=== PATIENT | female | born 1945 | race Caucasian/White ===

== ENCOUNTER 2024-03-30 16:41 | Inpatient (IN) | payer MEDICARE ==
[~2024-03-30] VITALS: Ht 167.6 cm; Wt 96.5 kg
[2024-03-30 17:49] LABS: BASO # 0.1 10^3/uL (0.0-0.2); BASO % 0.3 % (0.0-1.0); EOS # 0.2 10^3/uL (0.0-0.5); HEMATOCRIT 41.2 % (36.0-47.0); HEMOGLOBIN 13.4 g/dl (12.0-15.5); LYMPH # 1.5 10^3/uL (1.5-5.0); LYMPH % 10.5 % (24.0-44.0); MEAN CORPUSCULAR HEMOGLOBIN 28.8 pg (27.0-33.0); MEAN CORPUSCULAR HGB CONC 32.5 g/dl (32.0-36.5); MEAN CORPUSCULAR VOLUME 88.4 fl (80.0-96.0); MONO # 1.1 10^3/uL (0.0-0.8); MONO % 7.7 % (2.0-8.0); NEUTROPHILS # 11.6 10^3/uL (1.5-8.5); NEUTROPHILS % 80.1 % (36.0-66.0); PLATELET COUNT, AUTOMATED 185 10^3/uL (150-450); RED BLOOD COUNT 4.66 10^6/uL (4.00-5.40); WHITE BLOOD COUNT 14.5 10^3/uL (4.0-10.0)
[2024-03-30 18:00] LABS: INR 1.14; PARTIAL THROMBOPLASTIN TIME 24.9 SECONDS (24.8-34.2); PROTHROMBIN TIME 14.3 SECONDS (12.5-14.5)
[2024-03-30 18:14] LABS: CK-MB VALUE MASS 8.4 NG/ML (<3.6)
[2024-03-30 18:17] LABS: ALBUMIN 3.4 G/DL (3.2-5.2); BILIRUBIN,DIRECT 0.3 MG/DL (<0.4); BILIRUBIN,TOTAL 0.8 MG/DL (0.3-1.2); CREATININE FOR GFR 1.83 MG/DL (0.55-1.30); GLOMERULAR FILTRATION RATE 28.5 (>39); POTASSIUM SERUM 5.7 MMOL/L (3.5-5.1); TOTAL PROTEIN 6.9 G/DL (5.7-8.2)
[2024-03-30 18:19] LABS: FREE T4 1.22 NG/DL (0.89-1.76); THYROID STIMULATING HORMONE 0.234 uIU/ML (0.55-4.78)
[2024-03-30 18:21] LABS: MB/CK RELATIVE INDEX 0.98 (< OR =4)
[2024-03-30] MEDS: NS 500 ML IV ONE (18:34)
[2024-03-30] MEDS: HumuLIN R (REGULAR) INSULIN (NovoLIN R) **100U/ML** PER UNIT IV ONE (19:41)
[2024-03-30] MEDS: CALCIUM GLUCONATE 1,000 MG in D5W MINI-BAG PLUS 100 ML IV ONE (19:42)
[2024-03-30] MEDS: DEXTROSE 50% 50ML SYRINGE IV STA (19:44)
[2024-03-30 20:09] LABS: CK-MB VALUE MASS 8.1 NG/ML (<3.6)
[2024-03-30 20:10] LABS: MB/CK RELATIVE INDEX 0.93 (< OR =4)
[2024-03-30] MEDS ORDERED: FURO20TA2 PO (20:56)
[2024-03-30] MEDS ORDERED: ASPI-615 PO (20:56)
[2024-03-30] MEDS ORDERED: FAMO10TA50 PO (20:56)
[2024-03-30] MEDS ORDERED: BUDE10.2 INH (20:56)
[2024-03-30] MEDS ORDERED: LANS30CA93 PO (21:00)
[2024-03-30] MEDS ORDERED: GABA-1490 PO (21:00)
[2024-03-30] MEDS ORDERED: LEVO75TA4 PO (21:00)
[2024-03-30] MEDS ORDERED: LEVO50TA5 PO (21:00)
[2024-03-30] MEDS ORDERED: PRAM1TAB7 PO (21:11)
[2024-03-30] MEDS ORDERED: METO1TAB7 PO (21:11)
[2024-03-30] MEDS ORDERED: TRAZ-257 PO (21:11)
[2024-03-30] MEDS ORDERED: LISI5TAB11 PO (21:11)
[2024-03-30] MEDS ORDERED: SALA1TAB PO (21:11)
[2024-03-30] MEDS ORDERED: ROSU10TA61 PO (21:11)
[2024-03-30] MEDS ORDERED: OXYC20TA2 PO ×2 (21:11→21:20)
[2024-03-30] MEDS ORDERED: SERT50TA29 PO (21:11)
[2024-03-30] MEDS ORDERED: MAGN64TASA PO (21:11)
[2024-03-30] MEDS ORDERED: MELATAB3 PO (21:11)
[2024-03-30] MEDS ORDERED: SENN-23 PO (21:11)
[2024-03-30] MEDS ORDERED: TIZA10TA PO (21:11)
[2024-03-30] MEDS ORDERED: MIRA3350 PO (21:20)
[2024-03-30] MEDS ORDERED: PHEN26CR TOP (21:20)
[2024-03-30] MEDS ORDERED: REFR0.5D8 OU (21:20)
[2024-03-30] MEDS ORDERED: TUMS500C PO (21:20)
[2024-03-30] MEDS ORDERED: NYST1POW9 TOP (21:20)
[2024-03-30] MEDS ORDERED: SFHHYD1CR TOP (21:20)
[2024-03-30] MEDS ORDERED: ONDA-84 PO (21:20)
[2024-03-30] MEDS ORDERED: ALBU8.5H INH (21:20)
[2024-03-30] MEDS ORDERED: IPRA0.00 INH (21:20)
[2024-03-30] MEDS ORDERED: [UNRECOGNIZED DRUG - CODE] MM (21:20)
[2024-03-30] MEDS ORDERED: HOME MED LIST COMPLETE! XX SCH (21:25)
[2024-03-30] MEDS ORDERED: ACETAMINOPHEN TAB 650MG DOSE (2X325MG) PO PRN (23:05)
[2024-03-30] MEDS ORDERED: IPRATROPIUM 0.5MG/ALBUTEROL 2.5MG INH SOL UD 3ML (DUONEB) INH PRN (23:05)
[2024-03-30] MEDS ORDERED: ONDANSETRON 4MG TAB PO PRN (23:05)
[2024-03-30] MEDS ORDERED: MIRALAX *UNIT DOSE* 17GM PACKET PO PRN (23:05)
[2024-03-30] MEDS ORDERED: DIBUCAINE 1% OINTMENT 30GM TOP PRN (23:05)
[2024-03-30] MEDS ORDERED: NYSTATIN 100,000 UNITS/GM TOPICAL PWD 15GM TOP PRN (23:05)
[2024-03-30] MEDS ORDERED: ARTIFICIAL TEARS DROPS 15ML BTL (VISINE DRY RELIEF) OU PRN (23:05)
[2024-03-30] MEDS ORDERED: ALBUTEROL 90 MCG/ACT 8GM HFA INHALER INH PRN (23:05)
[2024-03-30] MEDS: AZITHROMYCIN 250MG TABLET PO ONE (23:41)
[2024-03-30] MEDS: cefTRIAXone SOD 1 GM in D5W MINI-BAG PLUS 50 ML IV ONE (23:42)
[2024-03-31] MEDS ORDERED: NALOXONE INJ 0.4MG/1ML VIAL IV PRN ×2 (00:05→12:15)
[2024-03-31] MEDS ORDERED: PILL CUTTER 1 EACH XX PRN (00:10)
[2024-03-31 00:44] LABS: BLOOD UREA NITROGEN 49 MG/DL (9-23); CALCIUM LEVEL 8.9 MG/DL (8.3-10.6); CARBON DIOXIDE LEVEL 34 MMOL/L (20-31); CHLORIDE LEVEL 106 MMOL/L (98-107); CREATININE FOR GFR 1.74 MG/DL (0.55-1.30); GLOMERULAR FILTRATION RATE 30.2 (>39); GLUCOSE, FASTING 99 MG/DL (74-106); MAGNESIUM LEVEL 2.2 MG/DL (1.8-2.4); POTASSIUM SERUM 5.3 MMOL/L (3.5-5.1); SODIUM LEVEL 143 MMOL/L (136-145)
[2024-03-31 00:51] LABS: PROCALCITONIN <0.04 ng/ml
[2024-03-31] MEDS: LEVOTHYROXINE 75MCG TABLET (0.075MG) PO SCH (07:09)
[2024-03-31 07:31] LABS: HEMATOCRIT 39.5 % (36.0-47.0); HEMOGLOBIN 12.9 g/dl (12.0-15.5); MEAN CORPUSCULAR HEMOGLOBIN 28.6 pg (27.0-33.0); MEAN CORPUSCULAR HGB CONC 32.7 g/dl (32.0-36.5); MEAN CORPUSCULAR VOLUME 87.6 fl (80.0-96.0); PLATELET COUNT, AUTOMATED 174 10^3/uL (150-450); RED BLOOD COUNT 4.51 10^6/uL (4.00-5.40); WHITE BLOOD COUNT 11.4 10^3/uL (4.0-10.0)
[2024-03-31 08:17] LABS: ALBUMIN 3.2 G/DL (3.2-5.2); BILIRUBIN,TOTAL 1.1 MG/DL (0.3-1.2); CALCIUM LEVEL 8.8 MG/DL (8.3-10.6); CREATININE FOR GFR 1.5 MG/DL (0.55-1.30); GLOMERULAR FILTRATION RATE 35.8 (>39); MAGNESIUM LEVEL 2.1 MG/DL (1.8-2.4); POTASSIUM SERUM 4.9 MMOL/L (3.5-5.1); TOTAL PROTEIN 6.4 G/DL (5.7-8.2)
[2024-03-31] MEDS: SYMBICORT 160/4.5MCG INHALER 6GM INH SCH (08:19)
[2024-03-31] MEDS ORDERED: PILOCARPINE 5 MG PO SCH (09:00)
[2024-03-31] MEDS: lisinopriL 5 MG TAB PO SCH (09:00)
[2024-03-31] MEDS ORDERED: DOCUSATE SODIUM 100MG CAPSULE PO SCH (09:00)
[2024-03-31] MEDS: PRAMIPEXOLE 1 MG TAB PO SCH (10:01)
[2024-03-31] MEDS: SENOKOT S TAB PO SCH (10:02)
[2024-03-31] MEDS: oxyCODONE 5MG TAB PO SCH (10:03)
[2024-03-31] MEDS: SERTRALINE HCL 50 MG TAB PO SCH (10:04)
[2024-03-31] MEDS: PANTOPRAZOLE 40MG TAB (PROTONIX) PO SCH (10:04)
[2024-03-31] MEDS: FAMOTIDINE 20 MG TAB PO SCH (10:04)
[2024-03-31] MEDS: MAGNESIUM GLUCONATE 500 MG TAB PO SCH (10:05)
[2024-03-31] MEDS: GABAPENTIN 300 MG CAP PO SCH (10:05)
[2024-03-31] MEDS: FUROSEMIDE 20 MG TAB PO SCH (10:05)
[2024-03-31] MEDS: ASPIRIN 81MG ENTERIC TABLET PO SCH (10:05)
[2024-03-31] MEDS: HEPARIN SOD (PORCINE) 5000UNITS/ML 1ML VIAL/SYRINGE SC SCH (10:06)
[2024-03-31] MEDS: ACETAMINOPHEN 500 MG TAB PO SCH (14:48)
[2024-03-31] MEDS: oxyCODONE 5MG TAB PO ONE (14:48)
[2024-03-31 15:04] VITALS: BP 114/72; TEMP 97.5; O2SAT 94
[2024-03-31 16:40] VITALS: O2SAT 94
[2024-03-31 20:10] VITALS: BP 138/80; TEMP 97; O2SAT 96
[2024-03-31 21:00] VITALS: O2SAT 94
[2024-03-31] MEDS: tiZANidine 4 MG TAB PO SCH (21:16)
[2024-03-31] MEDS: traZODone 100 MG TAB PO SCH (21:16)
[2024-03-31] MEDS: ROSUVASTATIN 10 MG TAB (CRESTOR) PO SCH (21:17)
[2024-03-31] MEDS: METOPROLOL SUCC (TopROL XL) 50MG **XL** TAB PO SCH (21:17)
[2024-03-31] MEDS: cefTRIAXone SOD 1 GM in D5W MINI-BAG PLUS 50 ML IV SCH (22:49)
[2024-04-01 04:00] VITALS: BP 134/76; TEMP 97.5; O2SAT 92
[2024-04-01] MEDS: LEVOTHYROXINE 50MCG TABLET (0.05MG) PO SCH (05:48)
[2024-04-01 08:10] VITALS: BP 122/68; TEMP 97.3; O2SAT 97
[2024-04-01] MEDS: AZITHROMYCIN 250MG TABLET PO SCH (10:21)
[2024-04-01 12:41] VITALS: BP 132/84; TEMP 97.5; O2SAT 98
[2024-04-01] MEDS: oxyCODONE 5MG TAB PO PRN (14:28)
[2024-04-01] MEDS ORDERED: oxyCODONE 5MG TAB PO PRN (16:40)
[2024-04-01] MEDS: ACETAMINOPHEN 500 MG TAB PO SCH (17:29)
[2024-04-01 17:39] LABS: CALCIUM LEVEL 9.5 MG/DL (8.3-10.6); CREATININE FOR GFR 1.41 MG/DL (0.55-1.30); GLOMERULAR FILTRATION RATE 38.5 (>39); POTASSIUM SERUM 4.8 MMOL/L (3.5-5.1)
[2024-04-01 21:00] VITALS: O2SAT 95
[2024-04-01] MEDS: amLODIPine 5 MG TAB PO SCH (21:00)
[2024-04-01] MEDS: **hydrALAZINE** 10 MG TAB PO SCH (21:00)
[2024-04-01 22:00] VITALS: BP 111/64; TEMP 97.3; O2SAT 93
[2024-04-01] MEDS: CEFDINIR 300 MG CAP (OMNICEF) PO SCH (22:42)
[2024-04-02] VITALS (7 sets, daily range): BP systolic 105–153; BP diastolic 54–77; TEMP 97–97.9; O2SAT 92–94
[2024-04-02] MEDS ORDERED: PERMETHRIN 5% CREAM 60 GM TOP SCH
[2024-04-02 06:04] LABS: HEMATOCRIT 42.6 % (36.0-47.0); LYMPH # 0.7 10^3/uL (1.5-5.0); LYMPH % 8.9 % (24.0-44.0); MEAN CORPUSCULAR HEMOGLOBIN 28.5 pg (27.0-33.0); MEAN CORPUSCULAR HGB CONC 32.9 g/dl (32.0-36.5); MEAN CORPUSCULAR VOLUME 86.6 fl (80.0-96.0); MONO # 0.1 10^3/uL (0.0-0.8); MONO % 1.7 % (2.0-8.0); NEUTROPHILS % 89.1 % (36.0-66.0); PLATELET COUNT, AUTOMATED 205 10^3/uL (150-450); RED BLOOD COUNT 4.92 10^6/uL (4.00-5.40); WHITE BLOOD COUNT 7.8 10^3/uL (4.0-10.0)
[2024-04-02 06:34] LABS: CALCIUM LEVEL 9.1 MG/DL (8.3-10.6); CREATININE FOR GFR 1.54 MG/DL (0.55-1.30); GLOMERULAR FILTRATION RATE 34.8 (>39); POTASSIUM SERUM 4.8 MMOL/L (3.5-5.1)
[2024-04-02] MEDS: PERMETHRIN 5% CREAM 60 GM TOP ONE (17:58)
[2024-04-02] MEDS: RAMELTEON 8 MG TAB (ROZEREM) PO PRN (20:34)
[2024-04-03 03:52] VITALS: BP 130/58; TEMP 97.9; O2SAT 95
[2024-04-03 09:00] VITALS: O2SAT 94
[2024-04-03] MEDS ORDERED: OXYC-517 PO (11:37)
[2024-04-03] MEDS ORDERED: CEFD300CAP PO (11:37)
[2024-04-03] MEDS ORDERED: BACI1CAP PO (11:37)
[2024-04-03] MEDS ORDERED: ACET-683 PO (11:41)
[2024-04-03] MEDS ORDERED: METO1TAB87 PO (11:44)
[2024-04-03] MEDS ORDERED: LASI20TA3 PO (11:46)
[2024-04-03] MEDS ORDERED: GABA-282 PO (11:48)
[2024-04-03] MEDS ORDERED: DEXA2TA PO (11:52)
[2024-04-03 12:35] VITALS: BP 129/71; TEMP 97.7; O2SAT 94
== END 2024-04-03 13:21 | disposition home or self-care (01) | DRG 689 ==
LOC: M ED 16:41 → M ED INP 23:04 → M MSPAV 03-31 14:58
PROVIDERS: ADMIT Family Medicine; ATTEND General Practice
DX: N39.0 Urinary tract infection, site not specified (principal); J18.9 Pneumonia, unspecified organism; G92.8 Other toxic encephalopathy; S22.079A Unspecified fracture of T9-T10 vertebra, initial encounter for closed fracture; N17.9 Acute kidney failure, unspecified; Z66 Do not resuscitate; E87.5 Hyperkalemia; W19.XXXA Unspecified fall, initial encounter; Y92.009 Unspecified place in unspecified non-institutional (private) residence as the place of occurrence of the external cause; Y93.9 Activity, unspecified; I25.10 Atherosclerotic heart disease of native coronary artery without angina pectoris; I12.9 Hypertensive chronic kidney disease with stage 1 through stage 4 chronic kidney disease, or unspecified chronic kidney disease; E78.5 Hyperlipidemia, unspecified; E11.42 Type 2 diabetes mellitus with diabetic polyneuropathy; J44.9 Chronic obstructive pulmonary disease, unspecified; J45.909 Unspecified asthma, uncomplicated; K21.9 Gastro-esophageal reflux disease without esophagitis; E11.22 Type 2 diabetes mellitus with diabetic chronic kidney disease; N18.30 Chronic kidney disease, stage 3 unspecified; M19.90 Unspecified osteoarthritis, unspecified site; G25.81 Restless legs syndrome; M91.0 Juvenile osteochondrosis of pelvis; F32.A Depression, unspecified; E03.9 Hypothyroidism, unspecified; G89.4 Chronic pain syndrome; Z90.13 Acquired absence of bilateral breasts and nipples; Z98.49 Cataract extraction status, unspecified eye; Z85.3 Personal history of malignant neoplasm of breast; Z79.82 Long term (current) use of aspirin; Z79.899 Other long term (current) drug therapy; Z79.891 Long term (current) use of opiate analgesic; Z79.890 Hormone replacement therapy; Z88.2 Allergy status to sulfonamides; Z88.1 Allergy status to other antibiotic agents; Z88.8 Allergy status to other drugs, medicaments and biological substances

== ENCOUNTER 2024-10-15 22:15 | Emergency (ER) | payer MEDICARE, MEDICAID ==
[~2024-10-15] VITALS: Ht 165.1 cm; Wt 92.1 kg
[~2024-10-15 22:15] MED LIST: ACET-683 PO; ALBU8.5H INH; ASPI-615 PO; BACI1CAP PO; BUDE10.2 INH; CEFD300CAP PO; DEXA2TA PO; FAMO10TA50 PO; FURO20TA2 PO; GABA-1172 PO; GABA-1490 PO; IPRA0.00 INH; LANS30CA93 PO; LASI20TA3 PO; LEVO50TA5 PO; LEVO75TA4 PO; LISI5TAB11 PO; MAGN64TASA PO; MELATAB3 PO; METO1TAB7 PO; METO1TAB87 PO; MIRA3350 PO; NYST1POW3 TOP; ONDA-84 PO; OXYC-517 PO; OXYC20TA2 PO; PHEN26CR TOP; PRAM1TAB7 PO; REFR0.5D8 OU; ROSU10TA61 PO; SALA1TAB PO; SENN-23 PO; SERT50TA29 PO; SFHHYD1CR TOP; TIZA10TA PO; TRAZ-257 PO; TUMS500C PO; [UNRECOGNIZED DRUG - CODE] MM
[2024-10-15 23:05] LABS: BASO # 0.1 10^3/uL (0.0-0.2); BASO % 0.7 % (0.0-1.0); EOS # 0.2 10^3/uL (0.0-0.5); EOS % 2.4 % (0.0-3.0); HEMATOCRIT 38.1 % (36.0-47.0); HEMOGLOBIN 12.3 g/dl (12.0-15.5); LYMPH # 2.4 10^3/uL (1.5-5.0); MEAN CORPUSCULAR HEMOGLOBIN 28.9 pg (27.0-33.0); MEAN CORPUSCULAR HGB CONC 32.3 g/dl (32.0-36.5); MEAN CORPUSCULAR VOLUME 89.6 fl (80.0-96.0); MONO # 0.9 10^3/uL (0.0-0.8); MONO % 11.1 % (2.0-8.0); NEUTROPHILS # 4.1 10^3/uL (1.5-8.5); NEUTROPHILS % 53.5 % (36.0-66.0); PLATELET COUNT, AUTOMATED 170 10^3/uL (150-450); RED BLOOD COUNT 4.25 10^6/uL (4.00-5.40); WHITE BLOOD COUNT 7.6 10^3/uL (4.0-10.0)
[2024-10-15 23:27] LABS: ALBUMIN 3.3 G/DL (3.2-5.2); BILIRUBIN,TOTAL 0.5 MG/DL (0.3-1.2); CALCIUM LEVEL 8.7 MG/DL (8.3-10.6); CREATININE FOR GFR 1.2 MG/DL (0.55-1.30); GLOMERULAR FILTRATION RATE 46.6 (>39); POTASSIUM SERUM 3.4 MMOL/L (3.5-5.1); TOTAL PROTEIN 6.5 G/DL (5.7-8.2)
[2024-10-15 23:29] LABS: THYROID STIMULATING HORMONE 0.44 uIU/ML (0.55-4.78)
[2024-10-16 01:08] LABS: KETONE, URINE AUTO RFX NEGATIVE (NEGATIVE); LEUKOCYTE ESTERASE UR AUTO RFX NEGATIVE (NEGATIVE); MUCUS, URINE RFX SMALL (NEGATIVE); NITRITE, URINE AUTO RFX NEGATIVE (NEGATIVE); RBC, URINE AUTO RFX 2 /HPF (0-3); SQUAM EPITHELIAL CELL UR AURFX 3 /HPF (0-6); WBC, URINE AUTO RFX 1 /HPF (0-3)
[2024-10-16 02:49] VITALS: BP 119/75
[2024-10-16] MEDS: METOPROLOL 5 MG/5 ML VIAL IV STA (02:49)
[2024-10-16 08:15] VITALS: BP 126/67
[2024-10-16 08:16] VITALS: TEMP 97.5; O2SAT 99
== END 2024-10-16 08:41 | disposition home or self-care (01) ==
LOC: M ED 22:15
DX: F03.90 Unspecified dementia, unspecified severity, without behavioral disturbance, psychotic disturbance, mood disturbance, and anxiety (principal); R45.1 Restlessness and agitation; I44.4 Left anterior fascicular block; I45.81 Long QT syndrome; J44.9 Chronic obstructive pulmonary disease, unspecified; E78.5 Hyperlipidemia, unspecified; K21.9 Gastro-esophageal reflux disease without esophagitis; E03.9 Hypothyroidism, unspecified; N18.30 Chronic kidney disease, stage 3 unspecified; Z88.2 Allergy status to sulfonamides; Z88.8 Allergy status to other drugs, medicaments and biological substances; Z79.52 Long term (current) use of systemic steroids; Z79.83 Long term (current) use of bisphosphonates; Z79.82 Long term (current) use of aspirin; Z79.899 Other long term (current) drug therapy

== ENCOUNTER 2024-10-17 22:40 | Inpatient (IN) | payer MEDICARE, MEDICAID ==
[~2024-10-17] VITALS: Ht 162.6 cm; Wt 92.3 kg
[2024-10-18 00:35] LABS: HEMATOCRIT 39.6 % (36.0-47.0); HEMOGLOBIN 12.8 g/dl (12.0-15.5); MEAN CORPUSCULAR HEMOGLOBIN 29.3 pg (27.0-33.0); MEAN CORPUSCULAR HGB CONC 32.3 g/dl (32.0-36.5); MEAN CORPUSCULAR VOLUME 90.6 fl (80.0-96.0); PLATELET COUNT, AUTOMATED 176 10^3/uL (150-450); RED BLOOD COUNT 4.37 10^6/uL (4.00-5.40); WHITE BLOOD COUNT 8.6 10^3/uL (4.0-10.0)
[2024-10-18 00:46] LABS: ETHYL ALCOHOL (ETHANOL) < 0.003 % (0.000-0.010)
[2024-10-18 00:48] LABS: ALBUMIN 3.3 G/DL (3.2-5.2); ALKALINE PHOSPHATASE 59 U/L (35-104); ALT/SGPT 11 U/L (7.0-40); AST/SGOT 17 U/L (<34); BILIRUBIN,DIRECT < 0.1 MG/DL (<0.4); BILIRUBIN,TOTAL 0.3 MG/DL (0.3-1.2); BLOOD UREA NITROGEN 24 MG/DL (9-23); CALCIUM LEVEL 9.2 MG/DL (8.3-10.6); CARBON DIOXIDE LEVEL 28 MMOL/L (20-31); CHLORIDE LEVEL 105 MMOL/L (98-107); CREATININE FOR GFR 1.29 MG/DL (0.55-1.30); GLOMERULAR FILTRATION RATE 42.8 (>39); GLUCOSE, FASTING 118 MG/DL (74-106); SALICYLATE LEVEL < 3.0 MG/DL (<30); SODIUM LEVEL 144 MMOL/L (136-145); TOTAL PROTEIN 6.6 G/DL (5.7-8.2)
[2024-10-18 02:41] LABS: KETONE, URINE AUTO RFX TRACE mg/dL (NEGATIVE); LEUKOCYTE ESTERASE UR AUTO RFX 3+ (NEGATIVE); MUCUS, URINE RFX SMALL (NEGATIVE); NITRITE, URINE AUTO RFX NEGATIVE (NEGATIVE); RBC, URINE AUTO RFX 6 /HPF (0-3); SQUAM EPITHELIAL CELL UR AURFX 5 /HPF (0-6); WBC, URINE AUTO RFX 89 /HPF (0-3)
[2024-10-18 03:00] LABS: AMPHETAMINES LEVEL URINE NEGATIVE (NEGATIVE); BARBITURATES URINE NEGATIVE (NEGATIVE); CANNABINOIDS URINE NEGATIVE (NEGATIVE); COCAINE METABOLITE URINE NEGATIVE (NEGATIVE); METHADONE URINE NEGATIVE (NEGATIVE); PHENCYCLIDINE URINE NEGATIVE (NEGATIVE)
[2024-10-18 03:01] LABS: BENZODIAZEPINES URINE POSITIVE (NEGATIVE); OPIATES URINE POSITIVE (NEGATIVE)
[2024-10-18] MEDS: cefTRIAXone SOD 2 GM in DEXTROSE 5% (D5W) ADV/MINI-BAG 50 ML IV ONE (04:23)
[2024-10-18] MEDS ORDERED: GLUCAGON INJ 1MG VIAL SC PRN (04:25)
[2024-10-18] MEDS ORDERED: DEXTROSE 50% 50ML SYRINGE IV PRN (04:25)
[2024-10-18] MEDS ORDERED: MOM 30ML SUSPENSION UDC PO PRN (04:25)
[2024-10-18] MEDS ORDERED: GLUCOSE 4 GM CHEW PO PRN (04:25)
[2024-10-18] MEDS ORDERED: MED REC CURRENTLY UNOBTAINABLE XX SCH (05:15)
[2024-10-18] MEDS: NS (Normal Saline) 0.9% 1,000 ML IV SCH (05:43)
[2024-10-18 06:05] LABS: HEMATOCRIT 37.2 % (36.0-47.0); MEAN CORPUSCULAR HEMOGLOBIN 29.2 pg (27.0-33.0); MEAN CORPUSCULAR HGB CONC 32.3 g/dl (32.0-36.5); MEAN CORPUSCULAR VOLUME 90.5 fl (80.0-96.0); PLATELET COUNT, AUTOMATED 161 10^3/uL (150-450); RED BLOOD COUNT 4.11 10^6/uL (4.00-5.40); WHITE BLOOD COUNT 7.8 10^3/uL (4.0-10.0)
[2024-10-18 06:36] LABS: BILIRUBIN,TOTAL 0.2 MG/DL (0.3-1.2); CREATININE FOR GFR 1.17 MG/DL (0.55-1.30); GLOMERULAR FILTRATION RATE 48.1 (>39); TOTAL PROTEIN 6.2 G/DL (5.7-8.2)
[2024-10-18] MEDS: INSULIN LISPRO (NovoLOG) PER UNIT SC SCH ×2 (07:30→20:07)
[2024-10-18] MEDS: DOCUSATE SODIUM 100MG CAPSULE PO SCH (09:00)
[2024-10-18] MEDS: HEPARIN SOD (PORCINE) 5000UNITS/ML 1ML VIAL/SYRINGE SC SCH (09:00)
[2024-10-18] MEDS ORDERED: METO1TAB87 PO (12:14)
[2024-10-18] MEDS ORDERED: OXYC-1 PO (12:14)
[2024-10-18] MEDS ORDERED: CEFD1CAP9 PO (12:14)
[2024-10-18] MEDS ORDERED: ACET500T15 PO (12:14)
[2024-10-18] MEDS ORDERED: NITR50CA51 PO (12:17)
[2024-10-18] MEDS ORDERED: VITA-183 PO (12:24)
[2024-10-18] MEDS ORDERED: LOPE2TAB12 PO (12:24)
[2024-10-18] MEDS ORDERED: BUME1TAB3 PO (12:24)
[2024-10-18] MEDS ORDERED: ALEN70TA82 PO (12:24)
[2024-10-18] MEDS ORDERED: HOME MED LIST COMPLETE! XX SCH (12:30)
[2024-10-18 14:25] VITALS: BP 150/58; TEMP 97.7
[2024-10-18 16:00] VITALS: BP 155/91; TEMP 97.9; O2SAT 95
[2024-10-18] MEDS ORDERED: POLYVINYL ALCOHOL OPHTH SOLN 15ML (LIQUITEARS) OU PRN (17:50)
[2024-10-18] MEDS ORDERED: NYSTATIN 100,000 UNITS/GM TOPICAL PWD 15GM TOP PRN (17:50)
[2024-10-18] MEDS ORDERED: MIRALAX *UNIT DOSE* 17GM PACKET PO PRN (17:50)
[2024-10-18] MEDS ORDERED: LOPERAMIDE 2 MG CAPLET PO PRN (17:50)
[2024-10-18] MEDS ORDERED: ALBUTEROL 90 MCG/ACT 8GM HFA INHALER INH PRN (17:50)
[2024-10-18] MEDS: ASPIRIN 81MG ENTERIC TABLET PO SCH (18:38)
[2024-10-18] MEDS: SERTRALINE HCL 50 MG TAB PO SCH (18:43)
[2024-10-18] MEDS: OMEPRAZOLE 20MG CAP PO SCH (18:44)
[2024-10-18] MEDS ORDERED: PILL CUTTER 1 EACH XX PRN (18:45)
[2024-10-18 20:00] VITALS: BP 120/73; TEMP 98.2; O2SAT 94
[2024-10-18] MEDS: SYMBICORT 160/4.5MCG INHALER 6GM INH SCH (20:00)
[2024-10-18] MEDS: ROSUVASTATIN 10 MG TAB (CRESTOR) PO SCH (20:20)
[2024-10-18] MEDS: ACETAMINOPHEN 500 MG TAB PO SCH (20:21)
[2024-10-18] MEDS: PRAMIPEXOLE 1 MG TAB PO SCH (20:21)
[2024-10-18] MEDS: METOPROLOL TART 25 MG TABLET PO SCH (20:21)
[2024-10-18] MEDS: FAMOTIDINE 20 MG TAB PO SCH (20:21)
[2024-10-19 00:07] VITALS: BP 123/59; TEMP 97.5; O2SAT 96
[2024-10-19] MEDS: cefTRIAXone SOD 1 GM in DEXTROSE 5% (D5W) ADV/MINI-BAG 50 ML IV SCH (04:30)
[2024-10-19 04:31] VITALS: BP 126/63; TEMP 97.3; O2SAT 94
[2024-10-19] MEDS: LEVOTHYROXINE 50MCG TABLET (0.05MG) PO SCH (05:03)
[2024-10-19 07:00] LABS: HEMATOCRIT 39.5 % (36.0-47.0); HEMOGLOBIN 12.7 g/dl (12.0-15.5); MEAN CORPUSCULAR HEMOGLOBIN 28.5 pg (27.0-33.0); MEAN CORPUSCULAR HGB CONC 32.2 g/dl (32.0-36.5); MEAN CORPUSCULAR VOLUME 88.8 fl (80.0-96.0); PLATELET COUNT, AUTOMATED 163 10^3/uL (150-450); RED BLOOD COUNT 4.45 10^6/uL (4.00-5.40); WHITE BLOOD COUNT 6.9 10^3/uL (4.0-10.0)
[2024-10-19 07:29] LABS: ALKALINE PHOSPHATASE 44 U/L (35-104); ALT/SGPT 11 U/L (7.0-40); AST/SGOT 15 U/L (<34); BILIRUBIN,TOTAL 0.6 MG/DL (0.3-1.2); BLOOD UREA NITROGEN 16 MG/DL (9-23); CALCIUM LEVEL 8.8 MG/DL (8.3-10.6); CARBON DIOXIDE LEVEL 26 MMOL/L (20-31); CHLORIDE LEVEL 109 MMOL/L (98-107); CREATININE FOR GFR 0.85 MG/DL (0.55-1.30); GLOMERULAR FILTRATION RATE > 60.0 (>39); GLUCOSE, FASTING 90 MG/DL (74-106); POTASSIUM SERUM 4.3 MMOL/L (3.5-5.1); SODIUM LEVEL 143 MMOL/L (136-145); TOTAL PROTEIN 6.3 G/DL (5.7-8.2)
[2024-10-19 08:00] VITALS: BP 140/70; TEMP 97.7; O2SAT 95
[2024-10-19] MEDS: FUROSEMIDE 20 MG TAB PO SCH (08:46)
[2024-10-19] MEDS: SENOKOT S TAB PO SCH (08:47)
[2024-10-19] MEDS: BUMETANIDE 1 MG TAB PO SCH (08:47)
[2024-10-19] MEDS: METOPROLOL TART 12.5 MG PER 1/2 TAB PO SCH (08:48)
[2024-10-19] MEDS: oxyCODONE 5MG TAB PO SCH (08:48)
[2024-10-19 11:47] VITALS: O2SAT 95
[2024-10-19 12:00] VITALS: BP 133/55; TEMP 97.9; O2SAT 97
[2024-10-19 19:37] VITALS: BP 113/65; TEMP 97.6; O2SAT 96
[2024-10-20 04:48] VITALS: BP 123/81; TEMP 97.2; O2SAT 96
[2024-10-20 07:20] LABS: HEMATOCRIT 40.1 % (36.0-47.0); HEMOGLOBIN 12.9 g/dl (12.0-15.5); MEAN CORPUSCULAR HEMOGLOBIN 28.9 pg (27.0-33.0); MEAN CORPUSCULAR HGB CONC 32.2 g/dl (32.0-36.5); MEAN CORPUSCULAR VOLUME 89.7 fl (80.0-96.0); PLATELET COUNT, AUTOMATED 169 10^3/uL (150-450); RED BLOOD COUNT 4.47 10^6/uL (4.00-5.40); WHITE BLOOD COUNT 7.6 10^3/uL (4.0-10.0)
[2024-10-20 07:46] LABS: BILIRUBIN,TOTAL 0.4 MG/DL (0.3-1.2); CALCIUM LEVEL 8.9 MG/DL (8.3-10.6); CREATININE FOR GFR 0.98 MG/DL (0.55-1.30); GLOMERULAR FILTRATION RATE 59.5 (>39); POTASSIUM SERUM 4.2 MMOL/L (3.5-5.1); TOTAL PROTEIN 6.4 G/DL (5.7-8.2)
[2024-10-20 08:00] VITALS: BP 126/73; TEMP 98.1; O2SAT 96
[2024-10-20 09:20] VITALS: O2SAT 96
[2024-10-20 12:00] VITALS: BP 148/65; TEMP 97.7; O2SAT 96
[2024-10-20 16:00] VITALS: BP 120/52; TEMP 97.7; O2SAT 97
[2024-10-20 19:37] VITALS: BP 140/58; TEMP 97.5; O2SAT 96
[2024-10-21 04:15] VITALS: BP 94/54; TEMP 97.5; O2SAT 97
[2024-10-21] MEDS: ACETAMINOPHEN 325 MG TAB PO PRN (04:26)
[2024-10-21 08:00] VITALS: BP 174/64; TEMP 97.7; O2SAT 98
[2024-10-21 09:53] VITALS: O2SAT 96
[2024-10-21 12:00] VITALS: TEMP 97.2; O2SAT 99
[2024-10-21 12:45] VITALS: BP 146/80
[2024-10-21 19:38] VITALS: BP 121/63; TEMP 97.7; O2SAT 95
[2024-10-22 04:00] VITALS: BP 121/62; TEMP 97.3; O2SAT 93
[2024-10-22] MEDS: LINEZOLID 600MG TABLET (ZYVOX) PO SCH (10:05)
[2024-10-22 12:00] VITALS: BP 107/61; TEMP 97; O2SAT 93
[2024-10-22 20:06] VITALS: BP 107/64; TEMP 97.5; O2SAT 96
[2024-10-23] VITALS (9 sets, daily range): BP systolic 101–149; BP diastolic 53–59; TEMP 97.3–97.8; O2SAT 90–96
[2024-10-24 03:41] VITALS: BP 119/54; TEMP 97.2; O2SAT 93
[2024-10-24 12:00] VITALS: BP 104/71; TEMP 97.2; O2SAT 96
[2024-10-24 19:29] VITALS: BP 109/71; TEMP 97.3; O2SAT 95
[2024-10-25 04:13] VITALS: BP 137/74; TEMP 97.2; O2SAT 97
[2024-10-25] MEDS: BUMETANIDE 1 MG TAB PO SCH (09:32)
[2024-10-25] MEDS: METOPROLOL TART 25 MG TABLET PO SCH (09:33)
[2024-10-25 12:00] VITALS: BP 124/56; TEMP 98.1; O2SAT 94
[2024-10-25 19:56] VITALS: BP 131/57; TEMP 97.8; O2SAT 95
[2024-10-25] MEDS: MEMANTINE 5MG TABLET (NAMENDA) PO SCH (21:11)
[2024-10-25] MEDS: ARIPiprazole 2 MG TAB PO SCH (21:11)
[2024-10-26 04:00] VITALS: BP 110/61; TEMP 97.3; O2SAT 97
[2024-10-26 08:08] LABS: CALCIUM LEVEL 8.7 MG/DL (8.3-10.6); CREATININE FOR GFR 1.46 MG/DL (0.55-1.30); GLOMERULAR FILTRATION RATE 36.9 (>39); POTASSIUM SERUM 4.7 MMOL/L (3.5-5.1)
[2024-10-26 08:45] VITALS: BP 105/52
[2024-10-26 09:10] LABS: BASO # 0.1 10^3/uL (0.0-0.2); BASO % 0.6 % (0.0-1.0); EOS # 0.2 10^3/uL (0.0-0.5); EOS % 2.4 % (0.0-3.0); HEMATOCRIT 47.2 % (36.0-47.0); LYMPH # 1.9 10^3/uL (1.5-5.0); LYMPH % 23.5 % (24.0-44.0); MEAN CORPUSCULAR HGB CONC 31.8 g/dl (32.0-36.5); MEAN CORPUSCULAR VOLUME 91.3 fl (80.0-96.0); MONO # 0.9 10^3/uL (0.0-0.8); MONO % 10.8 % (2.0-8.0); NEUTROPHILS # 5.1 10^3/uL (1.5-8.5); NEUTROPHILS % 62.3 % (36.0-66.0); PLATELET COUNT, AUTOMATED 201 10^3/uL (150-450); RED BLOOD COUNT 5.17 10^6/uL (4.00-5.40); WHITE BLOOD COUNT 8.2 10^3/uL (4.0-10.0)
[2024-10-26 13:26] VITALS: BP 83/60; TEMP 96.8
[2024-10-26 13:29] VITALS: BP 167/62
[2024-10-26 19:42] VITALS: BP 109/64; TEMP 97.7; O2SAT 96
[2024-10-27 04:13] VITALS: BP 129/58; TEMP 97.5; O2SAT 95
[2024-10-27 08:35] VITALS: BP 130/59
[2024-10-27] MEDS: BUMETANIDE 1 MG TAB PO SCH (08:37)
[2024-10-27] MEDS ORDERED: MEMA1TAB3 PO (12:27)
[2024-10-27] MEDS ORDERED: ABIL1TAB13 PO (12:27)
[2024-10-27] MEDS ORDERED: LINE1TAB6 PO (12:27)
[2024-10-27 20:42] VITALS: BP 133/61; TEMP 97.5; O2SAT 96
[2024-10-28 04:16] VITALS: BP 125/63; TEMP 98.2; O2SAT 93
[2024-10-28 12:00] VITALS: BP 158/77; TEMP 97.5
[2024-10-28] MEDS: ANALGESIC BALM CRM 3OZ TOP PRN (19:28)
[2024-10-28 19:42] VITALS: BP 135/61; TEMP 97.3; O2SAT 98
[2024-10-29 05:34] VITALS: BP 128/65; TEMP 97.3; O2SAT 96
[2024-10-29 09:52] LABS: BASO % 0.5 % (0.0-1.0); EOS # 0.2 10^3/uL (0.0-0.5); HEMATOCRIT 43.5 % (36.0-47.0); HEMOGLOBIN 14.1 g/dl (12.0-15.5); LYMPH # 1.9 10^3/uL (1.5-5.0); MEAN CORPUSCULAR HEMOGLOBIN 29.3 pg (27.0-33.0); MEAN CORPUSCULAR HGB CONC 32.4 g/dl (32.0-36.5); MEAN CORPUSCULAR VOLUME 90.2 fl (80.0-96.0); MONO # 0.5 10^3/uL (0.0-0.8); MONO % 6.7 % (2.0-8.0); NEUTROPHILS # 4.9 10^3/uL (1.5-8.5); NEUTROPHILS % 65.5 % (36.0-66.0); PLATELET COUNT, AUTOMATED 184 10^3/uL (150-450); RED BLOOD COUNT 4.82 10^6/uL (4.00-5.40); WHITE BLOOD COUNT 7.4 10^3/uL (4.0-10.0)
[2024-10-29 10:04] LABS: INR 0.98; PARTIAL THROMBOPLASTIN TIME 28.2 SECONDS (24.8-34.2); PROTHROMBIN TIME 13.3 SECONDS (12.5-14.5)
[2024-10-29 10:23] LABS: CALCIUM LEVEL 9.3 MG/DL (8.3-10.6); CREATININE FOR GFR 1.17 MG/DL (0.55-1.30); GLOMERULAR FILTRATION RATE 48.1 (>39); POTASSIUM SERUM 4.8 MMOL/L (3.5-5.1)
[2024-10-29 12:00] VITALS: BP 128/59; TEMP 97.3
[2024-10-29] MEDS: RIVAROXABAN 10MG TAB (XARELTO) PO SCH (17:03)
[2024-10-29 20:03] VITALS: BP 96/58; TEMP 97.5; O2SAT 98
[2024-10-29 20:45] VITALS: BP 98/56
[2024-10-30 03:46] VITALS: BP 108/55; TEMP 97.3; O2SAT 97
[2024-10-30] MEDS: SERTRALINE HCL 50 MG TAB PO SCH (10:56)
[2024-10-30 11:55] VITALS: BP 121/76; TEMP 97.7; O2SAT 98
[2024-10-30 19:39] VITALS: BP 122/68; TEMP 97.7; O2SAT 97
[2024-10-31 04:54] VITALS: BP 124/70; TEMP 97.5; O2SAT 96
[2024-10-31 08:40] VITALS: BP 143/66
[2024-10-31 12:00] VITALS: BP 115/49; TEMP 97.5
[2024-10-31 17:37] LABS: VITAMIN B6,PYRIDOXAL PHOSPHATE 10.3 ng/mL (2.1-21.7)
[2024-10-31] MEDS ORDERED: HALOPERIDOL LACTATE 5MG/ML VIAL IV PRN (20:00)
[2024-10-31 20:07] VITALS: BP 114/66; TEMP 97.7; O2SAT 96
[2024-10-31] MEDS: PHENAZOPYRIDINE 100 MG TAB PO ONE (21:00)
[2024-11-01 01:36] LABS: KETONE, URINE AUTO RFX NEGATIVE (NEGATIVE); MUCUS, URINE RFX SMALL (NEGATIVE); NITRITE, URINE AUTO RFX NEGATIVE (NEGATIVE); RBC, URINE AUTO RFX 57 /HPF (0-3); SQUAM EPITHELIAL CELL UR AURFX 1 /HPF (0-6)
[2024-11-01 01:37] LABS: LEUKOCYTE ESTERASE UR AUTO RFX 3+ (NEGATIVE); WBC, URINE AUTO RFX 41 /HPF (0-3)
[2024-11-01] MEDS ORDERED: PIPERACILLIN/TAZOBACTAM SOD 3.375 GM in DEXTROSE 5% (D5W) ADV/MINI-BAG 50 ML IV SCH (05:00)
[2024-11-01 12:00] VITALS: BP 151/104; TEMP 97.3
[2024-11-01 21:02] VITALS: BP 180/95; TEMP 97.5; O2SAT 98
[2024-11-02 05:00] VITALS: BP 129/70; TEMP 97.2; O2SAT 97
[2024-11-03 04:56] VITALS: BP 136/76; TEMP 97.3; O2SAT 98
[2024-11-03 11:33] LABS: CALCIUM LEVEL 9.4 MG/DL (8.3-10.6); CREATININE FOR GFR 1.13 MG/DL (0.55-1.30); GLOMERULAR FILTRATION RATE 50.1 (>39); POTASSIUM SERUM 4.7 MMOL/L (3.5-5.1)
[2024-11-03] MEDS: NITROFURANTOIN (MACROBID) 100 MG CAP PO SCH (13:56)
[2024-11-04 04:05] VITALS: BP 111/70; TEMP 97.2; O2SAT 97
[2024-11-04] MEDS ORDERED: PHENAZOPYRIDINE 100 MG TAB PO SCH (14:55)
[2024-11-04 16:08] LABS: HEMATOCRIT 41.2 % (36.0-47.0); HEMOGLOBIN 13.2 g/dl (12.0-15.5); MEAN CORPUSCULAR HEMOGLOBIN 29.5 pg (27.0-33.0); MEAN CORPUSCULAR VOLUME 92.2 fl (80.0-96.0); PLATELET COUNT, AUTOMATED 148 10^3/uL (150-450); RED BLOOD COUNT 4.47 10^6/uL (4.00-5.40); WHITE BLOOD COUNT 11.1 10^3/uL (4.0-10.0)
[2024-11-04] MEDS: MIRALAX *UNIT DOSE* 17GM PACKET PO SCH (20:14)
[2024-11-05 04:49] VITALS: BP 123/72; TEMP 97.2; O2SAT 97
[2024-11-06 08:28] VITALS: BP 115/68
[2024-11-06] MEDS: METOPROLOL TART 25 MG TABLET PO ONE (13:00)
[2024-11-06] MEDS: METOPROLOL TART 25 MG TABLET PO SCH (20:39)
[2024-11-06] MEDS ORDERED: METOPROLOL TART 50 MG TAB PO SCH (21:00)
[2024-11-07 06:32] LABS: HEMATOCRIT 41.3 % (36.0-47.0); HEMOGLOBIN 13.4 g/dl (12.0-15.5); MEAN CORPUSCULAR HEMOGLOBIN 29.3 pg (27.0-33.0); MEAN CORPUSCULAR HGB CONC 32.4 g/dl (32.0-36.5); MEAN CORPUSCULAR VOLUME 90.4 fl (80.0-96.0); PLATELET COUNT, AUTOMATED 185 10^3/uL (150-450); RED BLOOD COUNT 4.57 10^6/uL (4.00-5.40); WHITE BLOOD COUNT 8.3 10^3/uL (4.0-10.0)
[2024-11-07 06:59] LABS: CALCIUM LEVEL 9.5 MG/DL (8.3-10.6); CREATININE FOR GFR 1.08 MG/DL (0.55-1.30); GLOMERULAR FILTRATION RATE 52.9 (>39); POTASSIUM SERUM 4.8 MMOL/L (3.5-5.1)
[2024-11-08 04:00] VITALS: BP 142/62; TEMP 97; O2SAT 97
[2024-11-09 04:31] VITALS: BP 96/55; TEMP 97.3; O2SAT 96
[2024-11-09] MEDS: CYCLOBENZAPRINE 5MG TABLET PO PRN (05:18)
[2024-11-10 04:22] VITALS: BP 126/59; TEMP 97.7; O2SAT 96
[2024-11-10 08:19] VITALS: BP 141/56
[2024-11-10] MEDS: MAALOX 30 ML SUSP *UDC PO PRN (11:41)
[2024-11-10] MEDS ORDERED: OXYC-1 PO ×2 (12:23→12:25)
[2024-11-10] MEDS ORDERED: CYCL-707 PO (12:25)
== END 2024-11-10 11:45 | DRG 689 ==
LOC: M ED 22:40 → EDBD 22:40 → M ED INP 10-18 04:21 → EEVIPCON 10-18 04:21 → M MS5PR 10-18 14:20
PROVIDERS: ADMIT Student in an Organized Health Care Education/Training Program; ATTEND Student in an Organized Health Care Education/Training Program
DX: N39.0 Urinary tract infection, site not specified (principal); G93.41 Metabolic encephalopathy; F03.918 Unspecified dementia, unspecified severity, with other behavioral disturbance; R45.851 Suicidal ideations; Z66 Do not resuscitate; I25.10 Atherosclerotic heart disease of native coronary artery without angina pectoris; J44.9 Chronic obstructive pulmonary disease, unspecified; E11.22 Type 2 diabetes mellitus with diabetic chronic kidney disease; E11.42 Type 2 diabetes mellitus with diabetic polyneuropathy; E78.5 Hyperlipidemia, unspecified; K21.9 Gastro-esophageal reflux disease without esophagitis; E03.9 Hypothyroidism, unspecified; I12.9 Hypertensive chronic kidney disease with stage 1 through stage 4 chronic kidney disease, or unspecified chronic kidney disease; N18.30 Chronic kidney disease, stage 3 unspecified; M19.90 Unspecified osteoarthritis, unspecified site; G25.81 Restless legs syndrome; M81.0 Age-related osteoporosis without current pathological fracture; G89.4 Chronic pain syndrome; F32.A Depression, unspecified; Z88.2 Allergy status to sulfonamides; Z88.8 Allergy status to other drugs, medicaments and biological substances; Z79.52 Long term (current) use of systemic steroids; Z79.83 Long term (current) use of bisphosphonates; Z79.82 Long term (current) use of aspirin; Z79.890 Hormone replacement therapy; Z79.899 Other long term (current) drug therapy; Z85.3 Personal history of malignant neoplasm of breast

== ENCOUNTER → 2025-05-20 | Outpatient (CLI) | payer MEDICARE, MEDICAID ==
[~2025-05-20] MED LIST changes: +ABIL1TAB13 PO; +ACET500T15 PO; +ALEN70TA82 PO; +BUME1TAB3 PO; +CEFD1CAP9 PO; +CYCL-707 PO; +D31000CA6 PO; +LINE1TAB6 PO; +LOPE2TAB12 PO; +MEMA1TAB3 PO; +NITR50CA51 PO; +OXYC-1 PO; -ROSU10TA61 PO; +ROSU10TA90 PO
== END ==
LOC: M RAD 12:22
PROVIDERS: ATTEND Physician Assistant
DX: E11.51 Type 2 diabetes mellitus with diabetic peripheral angiopathy without gangrene (principal); M79.604 Pain in right leg; M79.605 Pain in left leg

== ENCOUNTER → 2025-05-27 | Outpatient (CLI) | payer MEDICARE, MEDICAID | LOC: M RAD 10:29 | PROVIDERS: ATTEND Physician Assistant | DX: E11.51 Type 2 diabetes mellitus with diabetic peripheral angiopathy without gangrene (principal); I73.9 Peripheral vascular disease, unspecified ==